=== PATIENT | female | born 1995 | race Caucasian/White ===

== ENCOUNTER 2018-11-12 17:34 | Emergency (ER) | payer OTHER ==
[~2018-11-12] VITALS: Ht 157.5 cm; Wt 70.3 kg
[2018-11-12 17:34] VITALS: BP 126/78
== END 2018-11-12 18:18 | disposition home or self-care (01) ==
LOC: ER 17:37
DX: J32.9 Chronic sinusitis, unspecified (principal); F32.9 Major depressive disorder, single episode, unspecified
CPT/HCPCS: 99283; A4606